=== PATIENT | male | born 1970 | race Two or more races ===

== ENCOUNTER 2020-09-27 13:07 | Inpatient (IN) | payer MEDICAID, OTHER ==
[~2020-09-27] VITALS: Ht 172.7 cm; Wt 83.0 kg
[2020-09-27] MEDS ORDERED: CARISOPRODOL 350 MG TAB PO ONE (13:30)
[2020-09-27] MEDS ORDERED: KETOROLAC TROMETH 60MG/2ML VIAL IM ONE (13:30)
[2020-09-27] MEDS ORDERED: IOHEXOL 350 MG/ML 100ML IJ ONE (13:44)
[2020-09-27] MEDS ORDERED: LIDOCAINE 2% (LOCAL ANESTH.) PF 5ml SDV ONE (15:01)
[2020-09-27 15:29] LABS: Basophils # (auto) 0.1 10 ^3/uL (0-0.2); Basophils % (auto) 0.4 % (0.0-2.0); Eosinophils # (auto) 0 10 ^3/uL (0-0.8); Eosinophils % (auto) 0.1 % (0.0-7.0); Hematocrit 46.2 % (41.0-53.0); Hemoglobin 15.8 g/dL (13.5-17.5); Lymphocytes # (auto) 1.2 10 ^3/uL (0.4-5.4); Lymphocytes % (auto) 6.8 % (10.0-50.0); Mean Corpuscular Hemoglobin 29.3 pg (28.0-32.0); Mean Corpuscular Hgb Conc. 34.2 g/dL (32.0-36.0); Mean Corpuscular Volume 85.7 fL (80.0-100.0); Monocytes # (auto) 0.9 10 ^3/uL (0-1.3); Monocytes % (auto) 4.7 % (0.0-12.0); Neutrophils # (auto) 16.2 10 ^3/uL (1.6-8.6); Nucleated Red Blood Cells % 0.7 %; Platelet Count (auto) 247 10^3/uL (140-450); Red Blood Cells 5.39 10^6/uL (4.5-5.90); Red Cell Distribution Width 13.8 % (11.8-14.3); White Blood Cell 18.3 10^3/uL (4.4-10.8)
[2020-09-27 15:42] LABS: Anion Gap 7 (5-15); Blood Urea Nitrogen 15 mg/dL (7-18); Calcium 8.9 mg/dL (8.5-10.1); Carbon Dioxide 25 mmol/L (21-32); Chloride 104 mmol/L (98-107); Glucose 88 mg/dL (74-106); Potassium 4.1 mmol/L (3.5-5.1); Sodium 136 mmol/L (136-145)
[2020-09-27] MEDS ORDERED: ONDANSETRON HCL 4 MG/2 ML VIAL IV ONE (15:45)
[2020-09-27] MEDS ORDERED: MORPHINE SULFATE 4 MG/ML SYR/VIAL IV ONE (15:45)
[2020-09-27 15:47] LABS: Alanine Aminotransferase 25 U/L (16-61); Alkaline Phosphatase 79 U/L (45-117); Aspartate Aminotransferase 26 U/L (15-37); BUN/Creatinine Ratio 13.2; Bilirubin, Total 0.3 mg/dL (0.2-1.0); GFR African American 87 mL/min; GFR Non-African American 72 mL/min; Total Protein 7.8 g/dL (6.4-8.2)
[2020-09-27] MEDS ORDERED: ACETAMINOPHEN 500 MG TAB PO PRN (17:15)
[2020-09-27] MEDS ORDERED: MORPHINE SULF INJ 2 MG/ML SYRINGE 1ML IV PRN (17:15)
[2020-09-27] MEDS ORDERED: NITROGLYCERIN 0.4 MG SL TAB SL PRN (17:15)
[2020-09-27] MEDS ORDERED: LORazepam 0.5 MG TAB PO PRN (17:15)
[2020-09-27] MEDS ORDERED: ONDANSETRON HCL 4 MG/2 ML VIAL IV PRN (17:15)
[2020-09-27] MEDS ORDERED: DOCUSATE CALCIUM 240 MG CAP PO PRN (17:15)
[2020-09-27] MEDS: SODIUM CHLORIDE 0.9% 1,000 ML IV SCH (17:26)
[2020-09-27] MEDS: LABETALOL HCL 5 MG/ML 4ML SYRINGE IV PRN ×2 (18:02→21:06)
[2020-09-27] MEDS: MORPHINE SULF INJ 2 MG/ML SYRINGE 1ML IV PRN (18:02)
[2020-09-27 19:50] LABS: Urine Bacteria FEW /hpf (None Seen); Urine Blood Negative /uL (Negative); Urine Mucus FEW (None Seen); Urine WBC 1 /hpf (0 - 3)
[2020-09-27 19:53] LABS: Urine Specific Gravity > 1.050 (1.001-1.035)
[2020-09-28] MEDS: SODIUM CHLORIDE 0.9% 1,000 ML IV SCH ×4 (01:15→22:00)
[2020-09-28] MEDS: LABETALOL HCL 5 MG/ML 4ML SYRINGE IV PRN ×2 (01:39→08:54)
[2020-09-28 06:06] VITALS: BP 160/103
[2020-09-28] MEDS: MORPHINE SULF INJ 2 MG/ML SYRINGE 1ML IV PRN ×3 (07:01→21:40)
[2020-09-28 08:00] VITALS: BP 154/98
[2020-09-28 08:38] LABS: Basophils # (auto) 0 10 ^3/uL (0-0.2); Basophils % (auto) 0.5 % (0.0-2.0); Eosinophils # (auto) 0.1 10 ^3/uL (0-0.8); Eosinophils % (auto) 1.6 % (0.0-7.0); Hematocrit 40.9 % (41.0-53.0); Hemoglobin 14.2 g/dL (13.5-17.5); Lymphocytes # (auto) 2.3 10 ^3/uL (0.4-5.4); Mean Corpuscular Hemoglobin 29.7 pg (28.0-32.0); Mean Corpuscular Hgb Conc. 34.8 g/dL (32.0-36.0); Mean Corpuscular Volume 85.5 fL (80.0-100.0); Monocytes # (auto) 0.7 10 ^3/uL (0-1.3); Monocytes % (auto) 7.7 % (0.0-12.0); Neutrophils # (auto) 5.6 10 ^3/uL (1.6-8.6); Neutrophils % (auto) 64.2 % (37.0-80.0); Nucleated Red Blood Cells % 0.1 %; Platelet Count (auto) 216 10^3/uL (140-450); Red Blood Cells 4.78 10^6/uL (4.5-5.90); Red Cell Distribution Width 13.7 % (11.8-14.3); White Blood Cell 8.7 10^3/uL (4.4-10.8)
[2020-09-28] MEDS: PANTOPRAZOLE 40 MG TAB PO SCH (08:54)
[2020-09-28 09:12] LABS: Calcium 8.1 mg/dL (8.5-10.1); Potassium 3.9 mmol/L (3.5-5.1)
[2020-09-28 09:18] LABS: Albumin 3.4 g/dL (3.4-5.0); BUN/Creatinine Ratio 12.3; Bilirubin, Total 0.7 mg/dL (0.2-1.0); Total Protein 6.8 g/dL (6.4-8.2)
[2020-09-28 16:00] VITALS: BP 155/87
[2020-09-28 20:00] VITALS: BP 160/111
[2020-09-28 22:00] VITALS: BP 160/111
[2020-09-29] MEDS: MORPHINE SULF INJ 2 MG/ML SYRINGE 1ML IV PRN ×2 (04:19→09:00)
[2020-09-29 05:00] VITALS: BP 168/104
[2020-09-29] MEDS: SODIUM CHLORIDE 0.9% 1,000 ML IV SCH ×2 (07:17→17:15)
[2020-09-29 08:00] VITALS: BP 155/103
[2020-09-29] MEDS: LABETALOL HCL 5 MG/ML 4ML SYRINGE IV PRN (09:00)
[2020-09-29] MEDS: PANTOPRAZOLE 40 MG TAB PO SCH (09:00)
[2020-09-29 13:50] VITALS: BP 155/103
[2020-09-29 15:40] VITALS: BP 160/104
== END 2020-09-29 17:00 | disposition home or self-care (01) | DRG 135 ==
LOC: EDBD 13:07 → EDUNIT# 13:07 → ER 13:07 → TELE 13:08 → TELE-CENTR 09-28 05:40
PROVIDERS: ADMIT Family Medicine; ATTEND Family Medicine
PROC: 0W9B30Z Drainage of Left Pleural Cavity with Drainage Device, Percutaneous Approach (ICD-10-PCS; principal; 2020-09-27)
DX: S27.0XXA Traumatic pneumothorax, initial encounter (principal); S22.42XA Multiple fractures of ribs, left side, initial encounter for closed fracture; I10 Essential (primary) hypertension; S43.101A Unspecified dislocation of right acromioclavicular joint, initial encounter; D72.829 Elevated white blood cell count, unspecified; W11.XXXA Fall on and from ladder, initial encounter; Z80.0 Family history of malignant neoplasm of digestive organs; Z82.49 Family history of ischemic heart disease and other diseases of the circulatory system; Z83.3 Family history of diabetes mellitus; Y93.89 Activity, other specified; Y92.89 Other specified places as the place of occurrence of the external cause; Y99.8 Other external cause status; Z20.822 Contact with and (suspected) exposure to COVID-19
CPT/HCPCS: 36415; 70450; 71045; 71260; 73030; 74177; 80053; 81001; 84484; 85025; 87426; 97163; G0378; J1885; J2001; J2405; J3490